=== PATIENT | female | born 1950 | race Caucasian/White ===

== ENCOUNTER → 2018-01-10 | Outpatient (CLI) | payer MEDICARE, OTHER | END | disposition home or self-care (01) | LOC: CFH 14:09 | PROVIDERS: ATTEND Family Medicine | DX: Z12.31 Encounter for screening mammogram for malignant neoplasm of breast (principal); M85.80 Other specified disorders of bone density and structure, unspecified site; E03.9 Hypothyroidism, unspecified; E55.9 Vitamin D deficiency, unspecified; N95.8 Other specified menopausal and perimenopausal disorders; Z80.3 Family history of malignant neoplasm of breast | CPT/HCPCS: 77080; 77067 ==

== ENCOUNTER → 2020-02-12 | Outpatient (CLI) | payer MEDICARE, OTHER | END | disposition home or self-care (01) | LOC: CVU 11:10 | PROVIDERS: ATTEND Family Medicine | DX: E78.2 Mixed hyperlipidemia (principal); I10 Essential (primary) hypertension; R41.0 Disorientation, unspecified; R22.1 Localized swelling, mass and lump, neck | CPT/HCPCS: 93306 ==

== ENCOUNTER 2020-12-28 12:05 | Outpatient (CLI) | payer MEDICARE, OTHER ==
[2020-12-28] MEDS ORDERED: LIDOCAINE 1%, 10ML ONE (12:27)
== END 2020-12-28 23:59 | disposition home or self-care (01) ==
LOC: RAD 12:05
PROVIDERS: ATTEND Otolaryngology
DX: D37.030 Neoplasm of uncertain behavior of the parotid salivary glands (principal)
CPT/HCPCS: 10005; 10006; 88172; 88173; 88177

== ENCOUNTER 2021-02-26 14:51 | Outpatient (CLI) | payer MEDICARE, OTHER | END 2021-02-26 23:59 | disposition home or self-care (01) | LOC: RAD 14:51 | PROVIDERS: ATTEND Family Medicine | DX: Z01.818 Encounter for other preprocedural examination (principal) | CPT/HCPCS: 71046 ==

== ENCOUNTER → 2021-06-03 | Outpatient (CLI) | payer MEDICARE, OTHER | END | disposition home or self-care (01) | LOC: ROC 09:57 | PROVIDERS: ATTEND Radiology Radiation Oncology | DX: Z08 Encounter for follow-up examination after completed treatment for malignant neoplasm (principal); C07 Malignant neoplasm of parotid gland | CPT/HCPCS: G0463 ==

== ENCOUNTER → 2021-06-11 | Outpatient (CLI) | payer MEDICARE, OTHER ==
[~2021-06-11] MED LIST: GADOTERATE 7.5 MMOL/15ML SYR ONE
== END | disposition home or self-care (01) ==
LOC: RAD 08:59
PROVIDERS: ATTEND Radiology Radiation Oncology
DX: C07 Malignant neoplasm of parotid gland (principal)
CPT/HCPCS: 70543; A9575

== ENCOUNTER → 2021-06-22 | Outpatient (CLI) | payer MEDICARE, OTHER | END | disposition home or self-care (01) | LOC: ROC 11:21 | PROVIDERS: ATTEND Radiology Radiation Oncology | DX: Z08 Encounter for follow-up examination after completed treatment for malignant neoplasm (principal); C07 Malignant neoplasm of parotid gland | CPT/HCPCS: G0463 ==

== ENCOUNTER 2021-06-24 12:11 | Outpatient (CLI) | payer MEDICARE, OTHER ==
[~2021-06-24 12:11] MED LIST changes: -GADOTERATE 7.5 MMOL/15ML SYR ONE; +LIDOCAINE 1%, 10ML ONE
== END 2021-06-24 23:59 | disposition home or self-care (01) ==
LOC: RAD 12:11
PROVIDERS: ATTEND Radiology Radiation Oncology
DX: C07 Malignant neoplasm of parotid gland (principal)
CPT/HCPCS: 42400; 76942

== ENCOUNTER 2021-08-04 13:09 | Outpatient (CLI) | payer MEDICARE, OTHER | END 2021-08-04 23:59 | disposition home or self-care (01) | LOC: PETCFH 13:09 | PROVIDERS: ATTEND Radiology Radiation Oncology | DX: C07 Malignant neoplasm of parotid gland (principal) | CPT/HCPCS: 78815; A9552 ==